=== PATIENT | female | born 1995 | race Caucasian/White ===

== ENCOUNTER 2017-02-02 21:51 | Emergency (ER) | payer BC ==
[2017-02-02 22:06] VITALS: RESP 18; O2SAT 96
[2017-02-02] MEDS ORDERED: HYDROmorphONE/DILAUDID 1 MG/ML INJ IVP PRN (23:03)
[2017-02-02] MEDS ORDERED: ONDANSETRON 4 MG/2 ML VIAL IVP PRN (23:03)
--- NOTE | 2017-02-02 23:06 | EDPHY ---
H & P Stated Complaint: rt ankle pain from skateboarding accident at 1800 today Source: Patient Exam Limitations: No limitations - Personal History LMP (Females 10-55): Over 28 Days Ago Current Tetanus/Diphtheria Vaccine: Yes Current Tetanus Diphtheria and Acellular Pertussis (TDAP): Yes - Medical/Surgical History Hx Asthma: No Hx Chronic Respiratory Disease: No Hx Diabetes: No Hx Cardiac Disease: No Hx Renal Disease: No Hx Cirrhosis: No Hx Alcoholism: No Hx HIV/AIDS: No Hx Splenectomy or Spleen Trauma: No Other PMH: depression, anxiety,. chrona disease - Social History Smoking Status: Never smoked Time Seen by Provider: 02/02/17 23:03 HPI/ROS: HPI: This is a 20-year-old female who presents with Chief Complaint: Right ankle injury Location: Right ankle Quality: Injury Duration: 2-4 hours prior to arrival Signs and Symptoms: No bleeding, no radiation, no numbness, no weakness, no tingling, no incontinence, no decreased range of motion, + pain, + ecchymosis Timing: Acute Severity: 02/28 Context: Patient reports that she was skateboarding and accidentally slipped off the skateboard while performing a trick and landed directly on her right lower leg with immediate pain. She was unable to bear weight due to pain. Modifying Factors: EMS was called and transported to the ER Comment: ROS: Constitutional: No fever, no chills, no weight loss Eyes: No blurred vision Respiratory: No shortness of breath, no cough Cardiovascular: No chest pain Gastrointestinal: No nausea, no vomiting no diarrhea Genitourinary: No dysuria Extremities: No myalgias Neurologic: No weakness, no numbness Skin: No rashes Hematologic: No bruising, no bleeding SOCIAL HISTORY: Massage therapy student (Adalgisa Cantrell) - Physical Exam Exam: CONSTITUTIONAL: young adult white female, pleasant cooperative, awake and alert , no obvious distress HEENT: Atraumatic and normocephalic, PERRL, EOMI. no globe entrapment, no raccoon eyes. Tympanic membranes clear. No tympanic membrane rupture. Oropharynx clear, no exudate and moist pink mucosa. No malocclusion. no dental trauma. Airway patent. No lymphadenopathy. NECK: supple, no midline tenderness, flexion 45 degrees, extension 45 degrees, right and left lateral flexion 45 degrees. No meningismus. Cardiovascular: Normal S1/S2, regular rate, regular rhythm, without murmur rub or gallop. PULMONARY/CHEST: Symmetrical and nontender. no crepitus. Clear to auscultation bilaterally Good air movement. No accessory muscle usage. ABDOMEN: Soft, nondistended, nontender, no ecchymosis, no rebound, no guarding , no peritoneal signs, no masses or organomegaly. No CVAT. PELVIC: no pain with rocking; bilateral hips flexion 125 degrees, extension 30 degrees, with no pain internal rotation and no pain external rotation. EXTREMITIES: 2/2 pulses, right mid lower leg; localized pain/swelling/ ecchymosis. Tissues are soft to touch. Right ankle plantar flexion 45, dorsiflexion 20. Right foot inversion 35, right foot eversion 25. Achilles intact. Right knee extension 180, flexion 120. no deformities, no clubbing, no cyanosis or edema. NEUROLOGICAL: no focal neuro deficits. GCS 15. SKIN: Warm and dry, no erythema. no rash. Good capillary refill. (Adalgisa Cantrell) Constitutional: Initial Vital Signs Temperature (C) 37.6 C 02/02/17 22:03 Heart Rate 110 H 02/02/17 22:03 Respiratory Rate 18 02/02/17 22:03 Blood Pressure 117/79 02/02/17 22:03 O2 Sat (%) 96 02/02/17 22:03 O2 Delivery Mode Room Air Allergies/Adverse Reactions: No Known Allergies Allergy (Unverified 02/02/17 22:06) Home Medications: Medication Instructions Recorded oxyCODONE/APAP 5/325 [Percocet 1 - 2 tab PO Q4H PRN #20 tab 02/02/17 5/325 (*)] Medical Decision Making Procedures: Procedure: Splint placement. A long leg posterior splint was applied by Emergency Room health type technician. After application of the splint I returned and re-examined the patient. The splint was adequately immobilizing the joint and distal to the splint the patient's circulation and sensation was intact. (Adalgisa Cantrell) ED Course/Re-evaluation: X-ray and IV medications ordered Given IV Dilaudid and Zofran X-ray my read shows distal tibial shaft fracture; placed in long leg posterior splint with knee at 5 flexion, foot in slight plantar flexion No signs of neurovascular compromise/tenting of skin/compartment syndrome/ extremities and joints examined above and below area of concern and are neurovascularly intact. Crutches, nonweightbearing, follow up with Orthopedics (Adalgisa Cantrell) Differential Diagnosis: Differential diagnosis includes but is not limited to tibial shaft fracture, tibial plateau fracture, pilon fracture, ankle fracture, toe fracture. (Adalgisa Cantrell) Other Provider: PHYSICIAN DOCUMENTATION: The patient was evaluated and managed by the Physician Insurance Marketing Rep. My co- signature indicates that I have reviewed this chart and I agree with the findings and plan of care as documented. I am the secondary supervising physician. (Suzie Jameson) - Data Points Medications Given: Discontinued Medications Oxycodone/Acetaminophen (Percocet 5/325mg Prepack#4) 1 btl TAKEHOME EDNOW ONE Stop: 02/02/17 23:12 Last Admin: 02/02/17 23:36 Dose: 1 btl Oxycodone/Acetaminophen (Percocet 5/325) 1 tab PO EDNOW ONE Stop: 02/02/17 23:33 Last Admin: 02/02/17 23:37 Dose: 1 tab Departure - Departure Disposition: Home, Routine, Self-Care Clinical Impression: Fracture of tibial shaft, right, closed Qualifiers: Encounter type: initial encounter Fracture morphology: unspecified fracture morphology Qualified Code(s): S82.201A - Unspecified fracture of shaft of right tibia, initial encounter for closed fracture Condition: Good Instructions: Oxycodone/Acetaminophen (By mouth), Open Reduction and Internal Fixation of a Leg Fracture in Children (ED), Leg Fracture (ED) Additional Instructions: Keep the splint dry and in place until seen by Orthopedics. Nonweightbearing on right lower leg and use crutches to aid in ambulation. Take ibuprofen 600-800 mg every 6-8 hours with food as needed for pain and inflammation. Take Percocet 1-2 tabs every 4-6 hours as needed for severe breakthrough pain. Follow up with Orthopedics at which time they will evaluate and recommend with you if conservative management versus surgery is indicated. Referrals: Yasmany Aguero PA [Primary Care Provider] - As per Instructions Naveen Mario MD [Medical Doctor] - 2-3 days, call for appt. Prescriptions: oxyCODONE/APAP 5/325 [Percocet 5325 (*)] 1 - 2 tab PO Q4H PRN #20 tab PRN Reason: Pain, Severe
[2017-02-02] MEDS ORDERED: OXYCODONE/APAP 5/325MG PREPACK#4 BTL TAKEHOME ONE (23:11)
[2017-02-02] MEDS ORDERED: OXYCODONE/APAP 5/325 TAB PO ONE ×2 (23:32→23:54)
[2017-02-03 02:43] VITALS: BP 119/76; PULSE 90; TEMP 97.9
== END 2017-02-03 02:00 | disposition home or self-care (01) ==
DX: S82.301A Unspecified fracture of lower end of right tibia, initial encounter for closed fracture (principal); V00.138A Other skateboard accident, initial encounter; Y99.8 Other external cause status; Y93.51 Activity, roller skating (inline) and skateboarding
CPT/HCPCS: 96374; J1170; J2405

== ENCOUNTER 2017-02-07 08:21 | Observation (INO) | payer BC ==
--- NOTE | 2017-02-06 13:38 | PDGENHP ---
History and Physical - Chief Complaint R tibia fracture - History of Present Illness 21y/o F c/o R tibia fracture x 4 days. Pt states she had a fall while skateboarding on 02/02/2017, landing with her R leg behind her. Pt states she immediately had pain in the RLE and was unable to ambulate. Pt was evaluated at [facility] ED, placed in a splint, and given crutches for NWB. Pt states her pain now is a 5/10. She has taken Advil as needed for pain. She has been strict NWB of the RLE and elevating to alleviate swelling. Pt denies numbness, tingling, fever, chills, and calf pain. History Information - Allergies/Home Medication List Allergies/Adverse Reactions: No Known Allergies Allergy (Unverified 02/02/17 22:06) I have personally reviewed and updated: family history, medical history, social history, surgical history Past Medical History: Crohn's disease, fibromyalgia, anxiety - Past Medical History Crohn's Disease, fibromyalgia - Surgical History Reports: no pertinent surgical hx - Social History Smoking Status: Never smoked Alcohol Use: Other (1-2 drinks per week) Drug Use: Marijuana (daily) Review of Systems Review of Systems: ROS: 10pt was reviewed & negative except for what was stated in HPI & below Physical Exam Physical Exam: Constitutional: no apparent distress Eyes: PERRL, EOMI Ears, Nose, Mouth, Throat: moist mucous membranes, hearing normal, no oral mucosal ulcers Cardiovascular: regular rate and rhythym, no murmur, rub, or gallop Peripheral Pulses: 2+: dorsalis-pedis (R), dorsalis-pedis (L) Respiratory: no respiratory distress, clear to auscultation Skin: warm, normal color Musculoskeletal: other (splint intact RLE. Pt is able to physical geographer her toes well, dorsalis pedis pulse 2+, brisk capillary refill, compartments soft) Neurologic: AAOx3, sensation intact bilaterally Psychiatric: interacting appropriately Lymph, Heme, Immunologic: no cervical LAD Lab Data & Imaging Review Imaging Review: mildly angulated and displaced fracture through the distal midshaft tibia Assessment & Plan Assessment: Right tibia fracture Plan: IM nail fixation R tibia with Dr. Mario 02/07/2017.
[2017-02-07] MEDS ORDERED: ceFAZolin 2 GM/DEXTROSE 100 ML IV ONE (09:05)
[2017-02-07] MEDS ORDERED: LR 1,000 ML IV ONE (09:15)
--- NOTE | 2017-02-07 09:38 | PDHPUP ---
History & Physical Update H&P update statement: This history and physical update is based on an assessment of the patient which was completed after admission or registration (within 24 hours), but prior to the surgery/procedure.
[2017-02-07] MEDS ORDERED: BACITRACIN 50,000 UNITS/10 ML SYR IRR ONE (09:48)
[2017-02-07] MEDS ORDERED: MIDAZOLAM 2 MG/2 ML VIAL IVP ONE (09:54)
[2017-02-07] MEDS ORDERED: MIDAZOLAM 2 MG/2 ML VIAL ONE (09:54)
[2017-02-07] MEDS ORDERED: PROPOFOL/EMULSION 500 MG/50 ML BOTTLE IV ONE ×3 (09:59→10:50)
[2017-02-07] MEDS ORDERED: fentaNYL 100 MCG/2 ML INJ ONE ×4 (10:00→12:46)
--- NOTE | 2017-02-07 10:41 | PDANEPAE ---
ANE History of Present Illness here for tibia IM nail ANE Past Medical History - Cardiovascular History Hx Hypertension: No Hx Arrhythmias: No Hx Chest Pain: No Hx Coronary Artery / Peripheral Vascular Disease: No Hx CHF / Valvular Disease: No Hx Palpitations: No - Pulmonary History Hx COPD: No Hx Asthma/Reactive Airway Disease: No Hx Recent Upper Respiratory Infection: No Hx Oxygen in Use at Home: No Hx Sleep Apnea: No Sleep Apnea Screening Result - Last Documented: Negative - Neurologic History Hx Cerebrovascular Accident: No Hx Seizures: No Hx Dementia: No - Endocrine History Hx Diabetes: No - Renal History Hx Renal Disorders: No - Liver History Hx Hepatic Disorders: No - Neurological & Psychiatric Hx Hx Neurological and Psychiatric Disorders: Yes Neurological / Psychiatric History Comment: anxiety.Chronic or complex PTSD - Cancer History Hx Cancer: No - Congenital Disorder History Hx Congenital Disorders: No - GI History Hx Gastrointestinal Disorders: Yes Gastrointestinal History Comment: flair up w/Crohn's recently. Dx 2007. - Other Health History Other Health History: Fx R tibia. fibromyalgia - Chronic Pain History Chronic Pain: Yes (abd,joints) - Surgical History Prior Surgeries: no surgery, but General anesthesia w/endoscopy/colonoscopy x2 ANE Review of Systems Review of Systems: - Exercise capacity Exercise capacity: >=4 METS METS (RN): 5 METS ANE Patient History - Allergies Allergies/Adverse Reactions: No Known Allergies Allergy (Verified 02/06/17 16:52) - Home Medications Home medications: home medication list seen and reviewed - NPO status NPO Status: no food or drink >8 hours NPO Since - Liquids (Date): 02/06/17 NPO Since - Liquids (Time): 23:30 NPO Since - Solids (Date): 02/06/17 NPO Since - Solids (Time): 23:30 - Anes Hx Anes Hx: post operative nausea - Smoking Hx Smoking Status: Never smoked - Alcohol Use Alcohol Use: Other (1-2 drinks per week) - Family Anes Hx Family Hx Anesthesia Complications: none ANE Labs/Vital Signs - Vital Signs Blood Pressure: 118/77 Heart Rate: 72 Respiratory Rate: 18 O2 Sat (%): 96 Height: 162.56 cm Weight: 58.967 kg ANE Physical Exam - Airway Neck exam: FROM Mallampati Score: Class 1 - Pulmonary Pulmonary: no respiratory distress - Cardiovascular Cardiovascular: regular rate and rhythym - ASA Status ASA Status: I ANE Anesthesia Plan Anesthesia Plan: GA w LMA
[2017-02-07] MEDS ORDERED: ALBUTEROL 3 ML DEYVIAL IH PRN ×2 (10:43→12:46)
[2017-02-07] MEDS ORDERED: DEXAMETHASONE 4 MG/ML VIAL IVP PRN ×2 (10:43→12:46)
[2017-02-07] MEDS ORDERED: PROMETHAZINE HCL 25 MG/ML INJ IVP PRN ×2 (10:43→12:46)
[2017-02-07] MEDS ORDERED: NALOXONE HCL 0.4 MG/ML INJ IVP PRN ×2 (10:43→12:46)
[2017-02-07] MEDS ORDERED: ONDANSETRON 4 MG/2 ML VIAL IVP PRN ×3 (10:43→14:14)
[2017-02-07] MEDS ORDERED: LR 500 ML IV PRN (10:43)
[2017-02-07] MEDS ORDERED: HYDROmorphONE/DILAUDID 2 MG/ML INJ IVP PRN ×2 (11:39→15:51)
[2017-02-07] MEDS ORDERED: NS 1,000 ML IV SCH (11:45)
[2017-02-07] MEDS ORDERED: POLYETHYLENE GLYCOL 3350 17 GM PKT PO PRN (11:48)
[2017-02-07] MEDS ORDERED: BISACODYL 10 MG SUPP PR PRN (11:48)
[2017-02-07] MEDS ORDERED: LACTULOSE 20 GM/30 ML UDCUP PO PRN (11:48)
[2017-02-07] MEDS ORDERED: MAGNESIUM HYDROXIDE 30 ML UDCUP PO PRN (11:48)
[2017-02-07] MEDS ORDERED: BUPIVACAINE/EPI 0.5% 30 ML SDV ONE (11:50)
[2017-02-07] MEDS ORDERED: oxyCODONE IR 5 MG TAB ONE ×2 (12:01→12:15)
[2017-02-07] MEDS ORDERED: HYDROmorphONE/DILAUDID 1 MG/ML INJ ONE ×2 (12:01→12:15)
[2017-02-07] MEDS: HYDROmorphONE/DILAUDID 1 MG/ML INJ IVP PRN ×4 (12:03→12:36)
--- NOTE | 2017-02-07 12:10 | POSTOPPROG ---
Post Op Note Date of Operation: 02/07/17 Surgeon: Naveen Mario Interior Design Coordinator: JIM Cooney Anesthesiologist: Yaya Pre-op Diagnosis: right tibia fracture, displaced Post-op Diagnosis: right tibia fracture, displaced Procedure: IM nail fixation right tibia Findings: As above, please see full dictation for details. Inf/Abcess present in the surg proc area at time of surgery?: No Depth: Deep Incisional (Fascial) Complications: No complications
--- NOTE | 2017-02-07 12:13 | SOAPPROG ---
SOAP Progress Note Assessment/Plan: Assessment/Plan: Right tibia fracture, displaced s/p IM nail fixation of right tibia performed by Dr. Mario on 02/07/2017, POD#0 -Cont PT/OT, pt will be toe touch weight bearing of the RLE, pt will remain in CAM walker boot -Cont Ancef for postop prophylaxis as ordered -Cont current pain management, encourage PO as tolerated -Encourage strict ice and elevation when in bed -Cont SCDs and TEDs on non-operative leg for VTE mechanical prophylaxis -Pt to begin Lovenox tomorrow am for VTE chemoprophylaxis -Likely d/c tomorrow pending PT/OT approval, completion of post op abx prophylaxis, and with successful PO pain management 02/07/17 12:10 02/07/17 12:13 Subjective: Pt transported to PACU in stable condition. Objective: Vital Signs Temp Pulse Resp BP Pulse Ox 36.7 C 97 105 H 132/85 H 95 02/07/17 12:04 02/07/17 12:04 02/07/17 12:04 02/07/17 12:04 02/07/17 12:04 ICD10 Worksheet Patient Problems: Problems Problem Status Onset Displaced fracture of right tibia Acute - ICD10 Problem Qualifiers (1) Displaced fracture of right tibia Qualifiers: Tibia location: shaft Fracture type: closed
[2017-02-07] MEDS: oxyCODONE IR 5 MG TAB PO PRN ×5 (12:14→22:29)
[2017-02-07] MEDS ORDERED: HYDROmorphONE/DILAUDID 1 MG/ML INJ IVP PRN (12:46)
[2017-02-07] MEDS: fentaNYL 100 MCG/2 ML INJ IVP PRN ×2 (12:50→13:04)
--- NOTE | 2017-02-07 13:27 | GOP ---
[f rep st] OPERATIVE REPORT DATE OF OPERATION: 02/07/2017 SURGEON: Naveen Mario MD SENIOR MANAGER QUALITY ASSURANCE: Олег Conoey PA-C. PREOPERATIVE DIAGNOSIS: Right distal tibia shaft fracture. POSTOPERATIVE DIAGNOSIS: Right distal tibia shaft fracture. PROCEDURE PERFORMED: Intramedullary nail fixation, right tibia. FINDINGS: A Synthes 345 mm x 10 mm titanium tibial nail was utilized. I locked this distally static ally with 2 screws and dynamically proximally. INDICATIONS: The patient is a 21-year-old who sustained the above injury last week in a skateboardin g accident. She was treated with splint immobilization. She is brought to the operating room today for definitive fracture management. DESCRIPTION OF PROCEDURE: After routinely checking the patient's identification and consent, and the successful induction of LMA general anesthetic, the patient's right lower extremity was suspended of f the end of the fracture table with Acufex leg tucker. The leg tucker was placed immediately surrou nding the tourniquet that had been placed previously. The left leg was placed in a Well-Leg tucker. The right lower extremity was now prepped and draped in the usual standard fashion. A surgical time -out was completed. I exsanguinated the limb with an Esmarch wrap and a pneumatic tourniquet. The p neumatic tourniquet was inflated to 275 mmHg. A medial midline longitudinal incision, just to the me dial side of the patellar tendon, was carried sharply through the skin and then bluntly through the s ubcutaneous layer. I dissected down to the retinaculum. I incised the retinaculum longitudinally, j ust to the medial side of the patellar tendon. I dissected down to the proximal tibia. I used a sta rting awl to create a remote pilot operator hole. I then flexed the knee and passed the guidewire longitudinally minoo n the tibial shaft. It easily passed across the fracture site, and I seated it at the distal physial scar. I commenced with reaming, first using an 8 mm end reamer and then reamed up to 11 mm size nanda t had reasonably good chatter at the mid diaphysis. I measured the indwelling portion of the guidewi re and chose a 345 mm nail x10 mm. I advanced the nail over the guidewire and, as soon as it had crown ceramist ssed the fracture site, removed the guidewire and then fully advanced this. Once this was advanced, and it was checked in 2 planes with a small FluoroScan unit and I was satisfied by the position, I pr oximally interlocked this in the dynamic hole using the targeting jig attached to the proximal nail i nsertion tool. Once this was completed, I checked this in 2 planes and was satisfied with the positi on of the interlocking screw. I removed the driving apparatus and placed an end cap in the proximal aspect of the nail. I irrigated this wound thoroughly. I now distally interlocked this using a smal l cutdown and parallel hold technique with a small C-arm. I was able to easily statically lock this distally with 2 transverse screws placed from medial to lateral. The screws achieved good purchase. I irrigated all wounds. I closed the cutdown incisions with subcuticular 4-0 Monocryl, followed by Steri-Strips. I re-irrigated the main knee entry wound and repaired the retinaculum with 0 Vicryl paz ture, [id number], buried knots x3. I then repaired the subcutaneous layer with 4-0 Vicryl, and the skin with subcuticular 4-0 Monocryl, followed by Steri-Strips. 0.25% Marcaine was infiltrated kg und all wounds for postoperative comfort, and a sterile bulky dressing was applied, followed by compr essive wrap throughout the length of leg. A CAM walker boot was applied to prevent equinus contractu re, and the patient was reversed from anesthetic, extubated, and transferred to recovery area in exce llent condition. She tolerated the procedure well. There were no complications. REASON FOR SWITCH ADJUSTER: A rn neurosurgical was medically necessary and required to complete this case. The assistant facility manager was used to decrease surgical time and position the leg in 3-dimensional s pace during fracture reduction, passage of the guidewire, passage of the reji, and interlocking screw fixation. /[id number]/MODL
[2017-02-07] MEDS: CYCLOBENZAPRINE 10 MG TAB PO SCH ×2 (14:17→17:51)
[2017-02-07] MEDS: ACETAMINOPHEN 325 MG TAB PO PRN ×2 (15:38→19:03)
[2017-02-07] MEDS: ceFAZolin 2 GM/DEXTROSE 100 ML IV SCH (17:50)
[2017-02-07] MEDS: ONDANSETRON DISINTEGRATING 4 MG TAB PO PRN (17:51)
--- NOTE | 2017-02-07 19:02 | POSTANESTH ---
Post Anesthetic Evaluation Cardiovascular Status: Normal, Stable Respiratory Status: Normal, Stable Level of Consciousness/Mental Status: Can Participate in Eval Pain Control: Adequate, Prn Tx Ordered Nausea/Vomiting Control: Adequate, Prn Tx Ordered Complications Possibly Related to Anesthesia: None Noted
[2017-02-08] MEDS: ACETAMINOPHEN 325 MG TAB PO PRN ×3 (01:20→11:20)
[2017-02-08] MEDS: ceFAZolin 2 GM/DEXTROSE 100 ML IV SCH (01:20)
[2017-02-08] MEDS: oxyCODONE IR 5 MG TAB PO PRN ×3 (02:35→11:23)
--- NOTE | 2017-02-08 06:53 | SOAPPROG ---
SOAP Progress Note Assessment/Plan: Assessment/Plan: Right tibia fracture, displaced s/p IM nail fixation of right tibia performed by Dr. Mario on 02/07/2017, POD#1 -Cont PT/OT, pt will be toe touch weight bearing of the RLE, pt will remain in CAM walker boot -Cont Ancef for postop prophylaxis as ordered -Cont current pain management, encourage PO as tolerated -Encourage strict ice and elevation when in bed -Cont SCDs and TEDs on non-operative leg for VTE mechanical prophylaxis -Pt to begin Lovenox tomorrow am for VTE chemoprophylaxis -Likely d/c today pending PT/OT approval, completion of post op abx prophylaxis , and with successful PO pain management 02/08/17 06:52 Subjective: Pt seen at bedside. States her peak in pain was yesterday afternoon and evening , though she slept well overnight. She reports some increased pain this morning , though notes she has not had her muscle relaxer yet. She also reports she has not yet seen PT/OT. She denies any irvin, sob, abd pain, bilat calf pain, or new onset n/t. Pt does report some nausea, well controlled with Zofran. We have discussed discharge criteria as well as s/s of compartment syndrome, infection and follow up instructions. She has no additional concerns or complaints at this time. Objective: Vital Signs Temp Pulse Resp BP Pulse Ox 37.0 C 89 18 124/84 H 93 02/08/17 04:00 02/08/17 04:00 02/08/17 04:00 02/08/17 04:00 02/08/17 04:00 02/07/17 02/08/17 02/09/17 05:59 05:59 05:59 Intake Total 1700 Output Total 1000 Balance 700 Pt seen at bedside, awoken for exam. VSS, afebrile, A&Ox3, appropriate mood and affect, pleasant and cooperative with exam. Exam of RLE reveals intact post operative dressings, CD, reinforced, with no surrounding erythema, calor, discharge or induration. CAM walker boot in place. Post calves are NTTP, no palpable vascular cords, neg Ector's bilat. Pt moves toes well, and is intact to light touch sensation distally. Capillary refill <2sec distally. DNVI BLE. ICD10 Worksheet Patient Problems: Problems Problem Status Onset Displaced fracture of right tibia Acute - ICD10 Problem Qualifiers (1) Displaced fracture of right tibia Qualifiers: Tibia location: shaft Fracture type: closed
[2017-02-08] MEDS: ONDANSETRON DISINTEGRATING 4 MG TAB PO PRN ×2 (07:45→11:22)
[2017-02-08 07:46] VITALS: BP 142/83; PULSE 82; RESP 14; TEMP 99.3; O2SAT 96
[2017-02-08] MEDS: METHOCARBAMOL 750 MG TAB PO SCH ×3 (07:47→11:22)
--- NOTE | 2017-02-08 08:28 | PDDCSUM ---
Discharge Summary Discharge Summary: DATE OF ADMISSION: 02/07/2017 DATE OF DISCHARGE: 02/08/2017 PREOPERATIVE DIAGNOSIS: Right tibia fracture, displaced. POSTOPERATIVE DIAGNOSES: Right tibia fracture, displaced. PROCEDURE PERFORMED: IM nail fixation of right tibia. HISTORY OF PRESENT ILLNESS: Suzanna is a pleasant 21 year old female who presented with radiographic evidence of a displaced tibia fracture sustained on 02/02/2017. She was initially seen at the [facility] ED later that day, and discharged with instructions to follow up with orthopedics. She was first evaluated by our practice on 02/06/2017, where her radiographs were reviewed, and after a discussion of treatment options, the decision was made to surgically fixate this fracture. HOSPITAL COURSE: The patient was admitted, placed on IV Ancef for antibiotic measure, and taken operating room on 02/07/2017, whereupon she underwent an IM nail fixation of the right tibia. There were no intraoperative complications. Postoperative treatment for DVT prophylaxis includes mechanical prophylaxis with LACHELLE hose placement and sequential compression dressings, as well as Xarelto for DVT chemoprophylaxis. She was consulted by physical and occupational therapy. Her incision sites appear to be healing well at the time of discharge, and her hospital stay was otherwise uneventful. DISCHARGE INSTRUCTIONS: 1. Patient is to remain in her CAM walker boot at all times, including for sleeping, and is to remain toe touch weight bearing until follow up. 2. Patient is to use ice and elevation as much as possible for pain and swelling control. 3. Patient is to keep her post operative dressings and surgical site clean and dry at all times, and to leave her dressing intact until follow up with Dr. Mario. She is also to monitor for signs of infection, including significant increases in pain, swelling, redness or warmth surrounding her surgical incision sites, as well as to monitor for constitutional symptoms such as fevers , chills, nausea or vomiting. She is encouraged to contact the office as soon as possible should any of these occur. 4. Patient is to take her pain medication as directed. She is encouraged to contact the office with any issues with this medication. 5. Patient is to take her Xarelto as directed for 21 days postoperatively. She is encouraged to contact the office with any issues with this medication. 6. Patient is to follow up w/ Dr. Mario 10-14 days postoperatively, or sooner with any additional concerns or complaints. This appointment has been previously scheduled. MEDICATIONS UPON DISCHARGE: 1. Oxycodone 2. Robaxin 3. Zofran ODT 4. Xarelto This patient is also to resume her preoperative medications at their prescribed dosage as instructed.
[2017-02-08] MEDS ORDERED: ENOXAPARIN 40 MG/0.4 ML SYR SC SCH (09:00)
[2017-02-08] MEDS ORDERED: RIVAROXABAN 10 MG TAB PO SCH (09:00)
--- NOTE | 2017-02-08 16:03 | ASDISCHSUM ---
Discharge Information Plan Status:Home with No Needs Medically Cleared to Leave: Discharge Date:02/08/2017 12:05 PM CM D/C Disposition: ADT D/C Disposition:Home, Routine, Self-Care Projected Discharge Date:02/08/2017 12:05 PM Transportation at D/C: Discharge Delay Reason: Follow-Up Date:02/08/2017 12:05 PM Discharge Slot: Final Diagnosis: Placement Information Patient Contact Information Contact Name:BRISEIDA Relationship:Mother Address: Work Phone: City: [facility] Phone: State/Zip Code: Email: Financial Information Financial Class:HMO and PPO Plans Primary Plan Desc: OUT OF STATE PPO Primary Plan Number:[id number] Secondary Plan Desc: Secondary Plan Number: Assessment Information Intervention Information
== END 2017-02-08 12:05 | disposition home or self-care (01) ==
LOC: F3N 08:21
PROVIDERS: ADMIT Orthopaedic Surgery Hand Surgery; ATTEND Orthopaedic Surgery Hand Surgery
PROC: 0QSG06Z Reposition Right Tibia with Intramedullary Internal Fixation Device, Open Approach (ICD-10-PCS; principal; 2017-02-07 10:00)
DX: S82.221A Displaced transverse fracture of shaft of right tibia, initial encounter for closed fracture (principal); V00.138A Other skateboard accident, initial encounter; Y93.51 Activity, roller skating (inline) and skateboarding; Y99.8 Other external cause status; K50.90 Crohn's disease, unspecified, without complications; F41.9 Anxiety disorder, unspecified; F43.12 Post-traumatic stress disorder, chronic
CPT/HCPCS: 27758; 73590; 97116; 97161; 97166; 97535; G0378; C1713; J0690; J1170; J2250; J2704; J3010